=== PATIENT | female | born 1960 | race Caucasian/White ===

== ENCOUNTER → 2025-02-19 08:38 | Outpatient (BNVA) | payer MEDICARE, SELFPAY | PROVIDERS: Family Provider Family Medicine; PCP Family Medicine; Visit Provider Psychiatry & Neurology Neurology | DX: G43.909 Migraine, unspecified, not intractable, without status migrainosus (principal); M54.2 Cervicalgia; G89.29 Other chronic pain; E55.9 Vitamin D deficiency, unspecified; G43.011 Migraine without aura, intractable, with status migrainosus | CPT/HCPCS: 36415; 82306; 82607; 82746; 83735; 83921; 85651; 86140; 86160; 86162; 86235; 86255; 86376; 86431; 99203 ==

== ENCOUNTER 2025-03-03 11:45 | Outpatient (CLI) | payer MEDICARE, SELFPAY ==
--- NOTE | 2025-03-03 13:00 | MR_ITS ---
WS: [id number] MRI BRAIN WITH AND WITHOUT CONTRAST HISTORY: G43.909 - Migraine, unspecified, not intractable, without... COMPARISON: None available. TECHNIQUE: Multiplanar imaging performed through the brain with MultiHance 19 ml's IV. No acute infarcts are seen. Monroe-white matter differentiation is well preserved. Mild cerebral and cerebellar atrophy and mild small vessel ischemic changes in the supratentorial white matter. No infarcts. Normal hippocampal formations. No susceptibility artifacts or prior lacunar infarcts. Ventricles and extra-axial spaces are normal. Clivus and pituitary gland are normal. Visualized posterior fossa and brainstem are also normal. Postcontrast images are negative for masses or vascular malformations. Dural venous sinuses are normal. Paranasal sinuses: Well aerated with no significant disease. Mastoid air cells: Normal. Calvarium and scalp: Normal. MR/MR head wo/w con [id number] IMPRESSION: 1. No acute infarcts or hemorrhage. 2. No enhancing masses. 3. Mild cerebral and cerebellar atrophy and mild small vessel ischemic type ch anges. 4. Normal hippocampal formations.
--- NOTE | 2025-03-03 13:45 | MR_ITS ---
WS: [id number] MRI CERVICAL SPINE with and without contrast HISTORY: M54.2 - Cervicalgia COMPARISON: None available. Technique: Multiplanar, multisequence noncontrast imaging of the cervical spine. MultiHance 19 mL IV. Normal posterior cervical alignment. Mild disc desiccation. No fractures or marrow edema. T1 slightly hyperintense lesion enhances on the RIGHT at the C3-4 level. There is a small dural tail and this enhancing lesion extends over a length of 8.8 mm and transversely by 6.5 mm. There is slight enhancement along the nerve root. This is an intradural mass but extramedullary and is most likely a nerve sheath tumor or meningioma. Craniocervical junction, C1 and C2 relationship, odontoid process and soft tissues are normal. C2-C3: Normal. C3-C4: Mild disc bulging and a small LEFT foraminal osteophyte. Mild LEFT foraminal stenosis. C4-C5: Normal. C5-C6: Small bilateral disc osteophyte complexes resulting in mild to moderate bilateral foraminal stenosis. C6-C7: Central disc protrusion with osteophytic ridging. Mild central and bilateral foraminal stenosis. C7-T1: Small RIGHT foraminal osteophyte. No stenosis. Paraspinal soft tissue are normal. MR/MR cervical spine wo/w [id number] IMPRESSION: 1. Intensely enhancing intradural, extramedullary mass on the RIGHT at the C3- 4 level. Mass measures 6.5 x 8.8 mm. 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 Less likely meningioma. Recommend MRI C-spine with and without contrast follow-up in 6 to 12 months. 2. Mild to moderate bilateral foraminal stenosis at C5-6 due to disc osteophyt e complexes. 3. C6-7: Central disc protrusion. Mild central and bilateral foraminal stenosi s.
[2025-03-03] MEDS: gadobenate dimeglumine 20 mL vial 19 ML IV (14:40)
== END 2025-03-03 11:46 | disposition home or self-care (01) ==
LOC: RAD 11:48
PROVIDERS: Family Provider Family Medicine; PCP Family Medicine; Visit Provider Psychiatry & Neurology Neurology
DX: M48.02 Spinal stenosis, cervical region (principal); G89.29 Other chronic pain; G43.909 Migraine, unspecified, not intractable, without status migrainosus; M25.78 Osteophyte, vertebrae; M50.223 Other cervical disc displacement at C6-C7 level; M50.31 Other cervical disc degeneration, high cervical region; R93.89 Abnormal findings on diagnostic imaging of other specified body structures; G31.89 Other specified degenerative diseases of nervous system; R93.0 Abnormal findings on diagnostic imaging of skull and head, not elsewhere classified
CPT/HCPCS: 70553; 72156

== ENCOUNTER → 2025-05-04 08:54 | Outpatient (BNVA) | payer MEDICARE, SELFPAY | PROVIDERS: Family Provider Family Medicine; PCP Family Medicine; Referring Provider Psychiatry & Neurology Neurology; Visit Provider Internal Medicine Rheumatology | DX: M05.79 Rheumatoid arthritis with rheumatoid factor of multiple sites without organ or systems involvement (principal); Z79.899 Other long term (current) drug therapy; Z71.85 Encounter for immunization safety counseling; M47.816 Spondylosis without myelopathy or radiculopathy, lumbar region; M25.50 Pain in unspecified joint | CPT/HCPCS: 36415; 80076; 82306; 82565; 85025; 85651; 86140; 86480; 86704; 86803; 87340; 99204 ==